=== PATIENT | female | born 1970 | race Caucasian/White ===

== ENCOUNTER 2023-02-09 08:58 | Outpatient (CLI) | payer BC | END 2023-02-09 08:59 | disposition home or self-care (01) | LOC: CSHULT 08:58 | PROVIDERS: ATTEND Internal Medicine Nephrology | DX: R31.9 Hematuria, unspecified (principal); M62.82 Rhabdomyolysis; N39.0 Urinary tract infection, site not specified; I11.9 Hypertensive heart disease without heart failure; I25.10 Atherosclerotic heart disease of native coronary artery without angina pectoris; M19.90 Unspecified osteoarthritis, unspecified site; E03.9 Hypothyroidism, unspecified; K21.9 Gastro-esophageal reflux disease without esophagitis; I13.10 Hypertensive heart and chronic kidney disease without heart failure, with stage 1 through stage 4 chronic kidney disease, or unspecified chronic kidney disease; N18.9 Chronic kidney disease, unspecified; R10.9 Unspecified abdominal pain; N12 Tubulo-interstitial nephritis, not specified as acute or chronic | CPT/HCPCS: 76700; 76770; 93976 ==